=== PATIENT | male | born 2000 | race Caucasian/White ===

== ENCOUNTER 2018-08-08 20:50 | Emergency (ER) | payer OTHER ==
[~2018-08-08] VITALS: Ht 180.3 cm; Wt 63.0 kg
--- NOTE | ~2018-08-08 | EKG ---
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
[2018-08-08 21:18] LABS: ABSOLUTE NEUTROPHILS 5.3 thou/uL (1.4-8.2); BASOPHILS 0.6 % (0.0-2.0); EOSINOPHILS 0.6 % (0.0-3.0); HEMATOCRIT 49.6 % (42.0-52.0); HEMOGLOBIN 16.9 gm/dL (14.0-18.0); LYMPHOCYTES 26.2 % (24.0-44.0); MCH 29.9 pg (26.0-34.0); MCV 88.1 fL (80.0-100.0); MONOCYTES 7.7 % (1.0-8.0); PLATELET COUNT 167 thou/uL (150-400); POLYS 64.9 % (36.0-66.0); RBC 5.64 mil/uL (4.50-6.00); RDW 14.1 % (10.5-14.5); WBC 8.1 thou/uL (4.0-11.0)
[2018-08-08 21:21] LABS: ANION GAP 8 mmol/L (7-16); BUN 11 mg/dL (7-18); CALCIUM 9.5 mg/dL (8.5-10.1); CHLORIDE 104 mmol/L (98-107); CO2 27 mmol/L (21-32); CREATININE 0.9 mg/dL (0.7-1.3); GLUCOSE 97 mg/dL (74-106); POTASSIUM 3.7 mmol/L (3.5-5.1); SODIUM 139 mmol/L (136-145)
[2018-08-08 21:30] LABS: ALBUMIN 4.3 g/dL (3.4-5.0); MAGNESIUM 2.1 mg/dL (1.8-2.4); SGOT 19 U/L (15-37); SGPT 15 U/L (30-65); TOTAL BILIRUBIN 0.4 mg/dL (<0.1-1.0); TOTAL PROTEIN 7.8 g/dL (6.4-8.2); TROPONIN-I <0.06 ng/mL (<0.06)
[2018-08-08] MEDS ORDERED: MOBIC7.5 MG PO (21:59)
[2018-08-08 22:05] VITALS: BP 133/85
== END 2018-08-08 22:06 | disposition home or self-care (01) ==
LOC: ER 20:50
PROVIDERS: Physician Assistant
DX: R07.9 Chest pain, unspecified (principal); F41.9 Anxiety disorder, unspecified; R55 Syncope and collapse; F17.210 Nicotine dependence, cigarettes, uncomplicated